=== PATIENT | male | born 1985 | race American Indian/Alaskan Native ===

== ENCOUNTER 2021-12-09 13:14 | Emergency (ER) | payer SELFPAY ==
[2021-12-09 14:05] VITALS: BP 123/77
--- NOTE | 2021-12-09 14:16 | Emergency Department Report ---
ED Eye Problem HPI - General Chief complaint: Eye Problems Stated complaint: EYE INFECTION Time Seen by Provider: 12/09/21 14:10 Source: patient Mode of arrival: Ambulatory Limitations: No Limitations - History of Present Illness Initial comments: c/o right eye infection x 3 weeks. no thai nod ischluiz , has been using OTC steriole eye drops -: Gradual, week(s) Onset Description: gradual Location: right eye Place: home If Injury: none Severity scale (0 -10): 2 If Pain, Quality: burning Consistency: intermittent - Related Data Previous Rx's Medication Instructions Recorded Last Taken Type Ciprofloxacin HCl [Ciloxan] 5 ml OP Q4H #1 drops 12/09/21 Unknown Rx Gentamicin 0.1% Top Oint(Nf) 1 applic TP TID #1 tube 12/09/21 Unknown Rx [Gentamicin 0.1% Top Oint (Nf)] Allergies Allergy/AdvReac Type Severity Reaction Status Date / Time No Known Allergies Allergy Unverified 12/09/21 14:02 ED Review of Systems ROS: Stated complaint: EYE INFECTION Other details as noted in HPI ED Past Medical Hx - Past Medical History Previous Medical History?: No Hx Hypertension: No - Medications Home Medications: Home Medications Medication Instructions Recorded Confirmed Last Taken Type Ciprofloxacin HCl [Ciloxan] 5 ml OP Q4H #1 drops 12/09/21 Unknown Rx Gentamicin 0.1% Top Oint(Nf) 1 applic TP TID #1 tube 12/09/21 Unknown Rx [Gentamicin 0.1% Top Oint (Nf)] ED Physical Exam - General Limitations: No Limitations General appearance: alert, in no apparent distress - Head Head exam: Present: atraumatic, normocephalic - Eye Eye exam: Present: normal appearance, conjunctival injection - Expanded Eye Exam Expanded Eyelids: Erythema: Right, Swelling: Right Pupils: Regular, Round: Bilateral, Reactive: Bilateral - ENT ENT exam: Present: mucous membranes moist - Neck Neck exam: Present: normal inspection - Respiratory Respiratory exam: Present: normal lung sounds bilaterally. Absent: respiratory distress - Cardiovascular Cardiovascular Exam: Present: regular rate, normal rhythm. Absent: systolic murmur, diastolic murmur, rubs, gallop - GI/Abdominal GI/Abdominal exam: Present: soft, normal bowel sounds - Rectal Rectal exam: Present: deferred - Extremities Exam Extremities exam: Present: normal inspection - Back Exam Back exam: Present: normal inspection - Neurological Exam Neurological exam: Present: alert, oriented X3 - Psychiatric Psychiatric exam: Present: normal affect, normal mood - Skin Skin exam: Present: warm, dry, intact, normal color. Absent: rash ED Course Vital Signs 12/09/21 14:02 Temperature 97.6 F Pulse Rate 84 Respiratory 18 Rate Blood Pressure 123/77 [Right] O2 Sat by Pulse 99 Oximetry Critical care attestation.: If time is entered above; I have spent that time in minutes in the direct care of this critically ill patient, excluding procedure time. ED Disposition Clinical Impression: Conjunctivitis, right eye Disposition: HOME / SELF CARE / HOMELESS Is pt being admited?: No Does the pt Need Aspirin: No Condition: Stable Instructions: How to Use Eye Drops and Eye Ointments Prescriptions: Ciprofloxacin HCl [Ciloxan] 5 ml OP Q4H #1 drops Gentamicin 0.1% Top Oint(Nf) [Gentamicin 0.1% Top Oint (Nf)] 1 applic TP TID #1 tube
== END 2021-12-09 14:26 | disposition home or self-care (01) ==
LOC: ED 13:14
DX: H10.9 Unspecified conjunctivitis (principal); Z79.899 Other long term (current) drug therapy
CPT/HCPCS: 99282